=== PATIENT | female | born 1950 | race Caucasian/White ===

== ENCOUNTER → 2018-08-04 14:15 | Outpatient (CLI) | payer MEDICARE, SELFPAY ==
[2018-08-04 17:36] LABS: M R Staph aureus DNA By PCR Negative (Negative); Probe Check PASS; Specimen Processing Control PASS; Staph aureus DNA By PCR NEGATIVE (Negative)
== END ==
PROVIDERS: Family Provider Family Medicine; PCP Family Medicine; Visit Provider Ophthalmology
DX: Z22.321 Carrier or suspected carrier of Methicillin susceptible Staphylococcus aureus (principal)
CPT/HCPCS: 87640

== ENCOUNTER → 2020-05-28 09:58 | Outpatient (CLI) | payer MEDICARE, SELFPAY | PROVIDERS: PCP Family Medicine; Referring Provider Urology; Visit Provider Urology | DX: N39.0 Urinary tract infection, site not specified (principal) | CPT/HCPCS: 87086; 87088; 87186 ==

== ENCOUNTER 2021-01-29 09:07 | Outpatient (RCR) | payer MEDICARE, SELFPAY ==
[2021-01-29] MEDS: COVID-19 VACC, MRNA(PFIZER)/PF 30 MCG/0.3 ML SYRINGE IM (13:46)
[2021-02-19] MEDS: COVID-19 VACC, MRNA(PFIZER)/PF 30 MCG/0.3 ML SYRINGE IM (13:05)
== END 2021-05-05 23:59 ==
LOC: IMMUN 09:07
PROVIDERS: PCP Family Medicine; Visit Provider Family Medicine
DX: Z23 Encounter for immunization (principal)
CPT/HCPCS: 0001A; 0002A; 91300

== ENCOUNTER 2023-03-18 05:46 | Day surgery (SDC) | payer MEDICARE, SELFPAY ==
[2023-03-18] VITALS (7 sets, daily range): BP systolic 137–158; BP diastolic 78–95; PULSE 70–88; RESP 16; TEMP 32.7–36.3; O2SAT 97–100; BMI 33.7
[2023-03-18] MEDS: Lactated Ringers 1,000 ML 15 ML IV (06:40)
[2023-03-18] MEDS: Cefazolin 2 GM in 0.9% Normal Saline 100 ML IV (07:30)
[2023-03-18] MEDS: Lidocaine 1% /Epi 1:100 (20ml) 20 ML Vial (07:51)
--- NOTE | 2023-03-18 08:08 | DCINST_ITS ---
Discharge Instructions Diet Discharge Diet: No restrictions Activity Discharge Activity: Return to Normal Activity and May Shower (in 2 days) Dressing / Incision Call your doctor if your incision/area has: Continuous Slow Oozing, Sudden Increased Bleeding, Increased Pain/ Swelling, Increased Redness, Foul Smelling Discharge and Swelling at the incision site Call your doctor if you observe: Fever of 101 or Higher, Inability to urinate and Inability to have a bowel movement Remove Dressing in: leave until fall off (do not remove the skin glue) Follow Up Care Please Follow Up With: Nyla Tang MD When: call for appt Test Results: Test results from this visit will be discussed in further detail at your follow- up appointment, if applicable. Discharge Plan Admission Attending Provider: Nyla Tang Primary Care Provider: Felipe Moreno Discharge Orders/Prescriptions Prescriptions: New acetaminophen-codeine [acetaminophen-codeine] 300-30 mg tablet 1 - 2 tab PO Q6H PRN PRN (Reason: Pain Score 6-10/10) 3 Days Qty: 10 0RF Continued losartan 50 mg tablet 50 mg PO DAILY hydroxyurea 500 mg Capsule 500 mg PO BID acetaminophen 325 mg Tablet 325 mg PO Q6H PRN (Reason: Pain) meclizine 25 mg Tablet 25 mg PO BID omeprazole 20 mg capsule,delayed release(DR/EC) 20 mg PO BID levothyroxine 112 mcg Tablet 112 mcg PO DAILY cyclobenzaprine 5 mg Tablet 5 mg PO BID rosuvastatin 10 mg tablet 10 mg PO DAILY gabapentin 400 mg Tablet 800 mg PO TID Referrals / Follow Up: Felipe Moreno DO [Primary Care Provider] - Disposition Disposition (needs filled in before D/C Order can be placed): Home, Self Care
--- NOTE | 2023-03-18 08:11 | PCM.OPRPT ---
Report of Operation Date of Procedure: 03/18/23 Pre-Operative Diagnosis: Back pain, urge incontinence Post-Operative Diagnosis: Same Surgery/Procedure Performed:: Removal InterStim battery and lead Surgeon: Nyla Tang Type of Anesthesia: MAC Description of Procedure: The patient is a 72-year-old female with a InterStim battery and back pain and she would like to have further imaging and other management for her back. She is ready to have the InterStim device removed. Informed consent was obtained. The patient was taken to the operating room and placed in a prone position on the operating room table. Anesthesia monitored the head, neck, airway, IV access and vital signs throughout the case. Once anesthesia was appropriately administered, the patient was prepped and draped in usual sterile fashion. The incisions overlying the battery and the lead insertion site were infiltrated with lidocaine. Incisions were made in both of these areas down to the battery which was brought into the operative field. The lead was secured with hemostat and the battery was removed. Tension on the lead was then used to identify the lead in the insertion site where it was grasped with a hemostat. Using 2 hemostats and constant pressure, the lead in its entirety was removed. Both the pocket site and the and lead insertion site were irrigated with sterile water. The Bovie was used for hemostasis. The incisions were closed using 3-0 Vicryl interrupted suture followed by 4-0 Monocryl subcuticular closures. Skin glue was then applied and allowed to dry completely. The patient was awakened and taken to the recovery room in good condition. There were no complications during this procedure. Grafts/Implants Used: None Complications None Admit VTE Documentation VTE Present on Admission: Yes VTE Mechan Device Prophylaxis: SCD's VTE Pharm Prophylaxis ordered?: No Reason prophylaxis not ordered:: Treatment Not Indicated
== END 2023-03-18 09:16 | disposition home or self-care (01) ==
LOC: SDC 05:47 → AC 05:48
PROVIDERS: PCP Family Medicine; Referring Provider Urology; Visit Provider Urology
PROC: (CPT 64595; principal; 2023-03-18 07:20)
DX: Z45.42 Encounter for adjustment and management of neurostimulator (principal); D45 Polycythemia vera; N39.41 Urge incontinence; M54.9 Dorsalgia, unspecified; R35.0 Frequency of micturition; N39.0 Urinary tract infection, site not specified; R35.1 Nocturia; N95.2 Postmenopausal atrophic vaginitis; I10 Essential (primary) hypertension; E78.00 Pure hypercholesterolemia, unspecified; E07.9 Disorder of thyroid, unspecified; Z79.899 Other long term (current) drug therapy; Z86.73 Personal history of transient ischemic attack (TIA), and cerebral infarction without residual deficits
CPT/HCPCS: 64595; 64585; 00300; J7120; J2405